=== PATIENT | female | born 2000 | race Caucasian/White ===

== ENCOUNTER 2021-10-21 15:34 | Emergency (ER) | payer OTHER, SELFPAY ==
[2021-10-21 15:42] VITALS: BP 129/81; PULSE 74; RESP 20; TEMP 36.8; O2SAT 100
--- NOTE | 2021-10-21 16:41 | ED.EAR ---
HPI - Ear Problem General Chief complaint: Ear Stated complaint: Ear Pain Time Seen by Provider: 10/21/21 16:41 Source: patient, RN notes reviewed and old records reviewed Mode of arrival: ambulatory Limitations: no limitations History of Present Illness HPI Narrative: 21 year old female presents to [facility] care with complaints of left ear pain for the past 4 days. Patient reports no fevers or nasal drainage.Patient reports no recent swimming. Patient reports that she haad a pimple in her ear canal that has been draining yellowish mucoid drainage and ear is sore. Patient rates her discomfort as 4/10 continuous aching has not taken any OTC medications. MD Complaint: ear pain Location: left ear Discharge from ear: Reports yes - purulent Related Data Home Medications Medication Instructions Recorded Confirmed cyanocobalamin (vitamin B-12) 1 tablet PO DAILY 10/21/21 10/21/21 1,000 mcg sublingual tablet drospirenone 3 mg-ethinyl 1 tablet PO DAILY 10/21/21 10/21/21 estradiol 0.02 mg tablet (Jo-Ann (28)) escitalopram oxalate 10 mg tablet 1 tablet PO DAILY 10/21/21 10/21/21 hydroxyzine HCl 25 mg tablet 1 tablet PO DAILY 10/21/21 10/21/21 metformin 850 mg tablet 1 tablet PO DAILY 10/21/21 10/21/21 Allergies Allergy/AdvReac Type Severity Reaction Status Date / Time No Known Allergies Allergy Verified 10/21/21 16:22 Review of Systems Review of Systems: CONSTITUTIONAL: Denies fever, chills, or sweats. EYES: Denies visual changes, redness, or discharge. ENT: Denies rhinorrhea, congestion, sore throat, left ear otalgia, CARDIOVASCULAR: Denies chest pain, palpitations, or edema. RESPIRATORY: Denies cough or dyspnea. GASTROINTESTINAL: Denies abdominal pain, nausea, vomiting, or diarrhea. GENITOURINARY: Denies dysuria or hematuria. SKIN: Denies rash or itching. MUSCULOSKELETAL: Denies back pain, joint pain, or myalgia. NEUROLOGIC: Denies headache, numbness, or weakness. PSYCHIATRIC: Positive for history of anxiety or depression. All systems reviewed & are unremarkable except as noted in HPI and below PMFSH Past Medical History Medical History (Updated 10/23/21 @ 14:36 by Stefania Elena NP) Hormone imbalance Reports she takes Metformin for this Ulnar nerve entrapment surgical release Surgical History Surgical History (Updated 10/23/21 @ 14:31 by Stefania Elena NP) History of shoulder surgery right Social History Social History (Updated 10/23/21 @ 14:28 by Stefania Elena NP) Smoking status: Never smoker Alcohol intake: current Alcohol use details: social Substance use type: does not use Living arrangements: with family Gender identity (if verbalized by the patient): Female Comments At time of signature, agree with nursing past medical, surgical, social and family history. There is no relevant family history pertinent to the presenting complaint Exam Narrative: GENERAL: Well-appearing, well-nourished, and in no acute distress. HEAD: Normocephalic, atraumatic. EYES: PERRLA and EOMI. ENT: Nares clear, no rhinorrhea or epistaxis. Mucous membranes moist.TM's normal with good light reflex, left ear canal red and with area of excoriation with some purulent drainage. NECK: Supple. no lymphadenopathy CHEST: Clear to auscultation. No respiratory distress.SAO2 100% on room air HEART: Regular rate and rhythm. No murmur heard. Normal peripheral pulses. ABDOMEN: Soft, nontender, nondistended, normal active bowel sounds. EXTREMITIES: Normal range of motion. No edema. SKIN: Warm, dry, no rash. NEURO: No focal deficits. Alert and oriented x3. Course Course Level of Care: Express Care Visit Vital Signs Vital signs: Vital Signs Temperature 36.8 C 10/21/21 15:42 Pulse Rate 74 10/21/21 15:42 Respiratory Rate 20 10/21/21 15:42 Blood Pressure 129/81 10/21/21 15:42 Pulse Oximetry 100 10/21/21 15:42 Oxygen Delivery Room Air 10/21/21 15:42 Temperature 36.8 C 10/21/21
== END 2021-10-21 17:09 | disposition home or self-care (01) ==
PROVIDERS: Emergency Provider Registered Nurse
DX: H60.92 Unspecified otitis externa, left ear (principal)
CPT/HCPCS: 99213; G0463

== ENCOUNTER 2022-03-19 12:39 | Emergency (ER) | payer OTHER, SELFPAY ==
[2022-03-19 13:30] VITALS: BP 134/75; PULSE 85; RESP 16; TEMP 36.6; O2SAT 100
--- NOTE | 2022-03-19 16:40 | ED.URI ---
HPI - URI/Sore Throat General Chief Complaint: Upper Respiratory Infection Stated Complaint: Sore Throat Time Seen by Provider: 03/19/22 16:40 Source: patient, RN notes reviewed and old records reviewed Mode of arrival: ambulatory Limitations: no limitations History of Present Illness HPI Narrative: 21-year-old female presents to Express Care of cold symptoms for 2 week duration which include sore throat, some sinus congestion drainage, headache, left ear discomfort with symptoms increasing yesterday. 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 Patient has had Covid vaccinations and Booster, no flu shot taken. Patient reports that she has been taking Ibuprofen, Sudafed, and Benadryl for her symptoms without resolution. MD elicited complaint: cough and sore throat Onset (ago): week(s) (2) Treatments prior to arrival: ibuprofen and other (Sudafed and Benadryl) Related Data Home Medications Medication Instructions Recorded Confirmed drospirenone 3 mg-ethinyl 1 tablet PO DAILY 10/21/21 03/19/22 estradiol 0.02 mg tablet (Jo-Ann (28)) escitalopram oxalate 10 mg tablet 1 tablet PO DAILY 10/21/21 03/19/22 hydroxyzine HCl 25 mg tablet 1 tablet PO DAILY 10/21/21 03/19/22 metformin 850 mg tablet 1 tablet PO DAILY 10/21/21 03/19/22 Allergies Allergy/AdvReac Type Severity Reaction Status Date / Time doxycycline Allergy Swelling Verified 03/19/22 14:32 of Lip/Tongue/Throat Review of Systems Review of Systems: CONSTITUTIONAL: Denies malaise, chills, sweats, or fever. EYES: Denies visual changes, redness, or discharge. ENT: Reports rhinorrhea, congestion, sinus pain, otalgia and sore throat. CARDIOVASCULAR: Denies chest pain, palpitations, or edema. RESPIRATORY: Reports occasional dry cough.? Denies dyspnea. GASTROINTESTINAL: Denies abdominal pain, nausea, vomiting, diarrhea SKIN: Denies rash or itching. MUSCULOSKELETAL: Denies myalgia. NEUROLOGIC:Reports headache. All systems reviewed & are unremarkable except as noted in HPI and below PMFSH Past Medical History Medical History (Updated 03/24/22 @ 22:25 by Stefania Elena NP) Anxiety and depression Hormone imbalance Reports she takes Metformin for this Ulnar nerve entrapment surgical release Surgical History Surgical History History of shoulder surgery right Social History Social History Smoking status: Never smoker Alcohol intake: current Alcohol use details: social Substance use type: does not use Gender identity (if verbalized by the patient): Female Comments At time of signature, agree with nursing past medical, surgical, social and family history. There is no relevant family history pertinent to the presenting complaint Exam Narrative: GENERAL: Well-appearing, well-nourished, and in no acute distress. HEAD: Normocephalic EYES: PERRLA, conjunctivae clear ENT: Nares clear, turbinates edematous and erythematous, clear discharge. Mucous membranes moist. TM pearly barry with dull light reflex bilaterally; no tragal tenderness. Oropharynx erythematous without lesions. Tonsils not enlarged and without exudate, no drooling, no hoarseness, no trismus, uvula midline.post nasal drainage. NECK: Supple. No lymphadenopathy CHEST: Clear to auscultation, breath sounds equal. No wheezing, rhonchi, rales, or stridor. No respiratory distress, speaks in full sentences.SAO2 100% on room air HEART: Regular rate and rhythm. No murmur heard. SKIN: Warm, dry, no rash. NEURO: Alert and oriented x3. PSYCH: Normal mood and affect Course Course Emergency Course: Patient is aware of diagnosis, understands and agrees to treatment plan.? Anticipatory guidance given.? Patient agrees to follow-up as directed and is aware of reasons to seek care at the emergency department. Portions of this r
== END 2022-03-19 17:11 | disposition home or self-care (01) ==
PROVIDERS: Emergency Provider Registered Nurse
DX: J32.9 Chronic sinusitis, unspecified (principal); J02.9 Acute pharyngitis, unspecified
CPT/HCPCS: 87081; 87880; 99213; G0463